=== PATIENT | female | born 1970 | race Caucasian/White ===

== ENCOUNTER 2019-05-23 15:01 | Emergency (ER) | payer OTHER ==
[2019-05-23] MEDS ORDERED: HYDROCODONE/APAP 5/325 MG TAB ONE (15:34)
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
--- NOTE | 2019-05-23 16:17 | RAD REPORT ---
EXAM DESCRIPTION: RAD - Wrist Left 3 View - 05/23/2019 3:51 pm CLINICAL HISTORY: PAIN Pain COMPARISON: <Comparisons> FINDINGS: Fracture of the distal radius is noted with probable intra-articular extension. Tiny ulnar styloid avulsion also seen. Mild adjacent soft tissue swelling.
[2019-05-23] MEDS ORDERED: IBUPROFEN 400 MG TAB ONE (16:24)
[2019-05-23 17:48] VITALS: BP 113/84; TEMP 97.4; O2SAT 98
== END 2019-05-23 17:16 | disposition home or self-care (01) ==
LOC: ER 15:01
PROC: 2W3DX1Z Immobilization of Left Lower Arm using Splint (ICD-10-PCS; principal; 2019-05-23)
DX: S52.502A Unspecified fracture of the lower end of left radius, initial encounter for closed fracture (principal); S52.612A Displaced fracture of left ulna styloid process, initial encounter for closed fracture; W22.8XXA Striking against or struck by other objects, initial encounter; Y92.810 Car as the place of occurrence of the external cause; F32.9 Major depressive disorder, single episode, unspecified; I10 Essential (primary) hypertension; F17.210 Nicotine dependence, cigarettes, uncomplicated
CPT/HCPCS: 99284